=== PATIENT | female | born 1970 | race Caucasian/White ===

== ENCOUNTER 2017-10-24 10:40 | Emergency (ER) | payer MEDICAID ==
[~2017-10-24] VITALS: Ht 165.1 cm; Wt 758.0 kg
[2017-10-24 10:57] VITALS: Ht 165.1 cm; Wt 758.0 kg
[2017-10-24 12:43] VITALS: BP 158/90
== END 2017-10-24 12:43 | disposition home or self-care (01) ==
LOC: ED 10:40
DX: K04.7 Periapical abscess without sinus (principal)
CPT/HCPCS: J1885

== ENCOUNTER 2018-07-06 00:10 | Emergency (ER) | payer MEDICAID ==
[~2018-07-06] VITALS: Ht 165.1 cm; Wt 81.2 kg
[2018-07-06 00:12] VITALS: Ht 165.1 cm; Wt 81.2 kg
[2018-07-06 00:54] LABS: BASOPHIL % 0.9 % (0-2); PLATELET COUNT 237 x10^3mcL (130-400); RED CELL DISTRIBUTION WIDTH 12.9 % (11.5-14.5)
[2018-07-06 01:03] LABS: CALCIUM 7.2 mg/dL (8.5-10.1); CHLORIDE SERUM 93 mmol/L (98-107); CREATININE SERUM 0.5 mg/dL (0.6-1.0); GFR1 > 60 mL/min; GLUCOSE SERUM 392 mg/dL (74-106); POTASSIUM SERUM 3.9 mmol/L (3.5-5.1); SODIUM SERUM 127 mmol/L (136-145)
[2018-07-06 01:32] LABS: CARBON DIOXIDE 3.5 mmol/L (21-32)
[2018-07-06 01:59] LABS: microscopic required? NO
[2018-07-06 02:05] LABS: urine erythrocyte NEGATIVE (NEGATIVE)
[2018-07-06 02:30] LABS: ALBUMIN 3.4 g/dL (3.4-5.0); ALKALINE PHOSPHATASE 87 U/L (46-116); BILIRUBIN TOTAL 1.56 mg/dL (0.20-1.00); CALCIUM 6.6 mg/dL (8.5-10.1); CHLORIDE SERUM 95 mmol/L (98-107); CREATININE SERUM 0.5 mg/dL (0.6-1.0); GFR1 > 60 mL/min; GLUCOSE SERUM 318 mg/dL (74-106); POTASSIUM SERUM 3.4 mmol/L (3.5-5.1); SODIUM SERUM 130 mmol/L (136-145)
[2018-07-06 02:49] LABS: TOTAL PROTEIN, SERUM 8.6 g/dL (6.4-8.2)
[2018-07-06 03:44] LABS: AST/SGOT 117 U/L (15-37)
[2018-07-06 04:43] LABS: ALT/SGPT 16 U/L (14-59)
[2018-07-06 05:10] VITALS: BP 132/82
== END 2018-07-06 05:10 | disposition home or self-care (01) ==
LOC: ED 00:10
PROVIDERS: Emergency Medicine
DX: T78.40XA Allergy, unspecified, initial encounter (principal); E11.9 Type 2 diabetes mellitus without complications; J45.909 Unspecified asthma, uncomplicated; Z88.6 Allergy status to analgesic agent; X58.XXXA Exposure to other specified factors, initial encounter
CPT/HCPCS: 82962; J1815; J7030; J7512; Q0163

== ENCOUNTER 2018-09-10 16:47 | Emergency (ER) | payer MEDICAID ==
[~2018-09-10] VITALS: Ht 165.1 cm; Wt 82.6 kg
[2018-09-10 17:30] VITALS: BP 174/98; Ht 165.1 cm; Wt 82.6 kg
== END 2018-09-10 18:15 | disposition home or self-care (01) ==
LOC: ED 16:47
DX: K08.89 Other specified disorders of teeth and supporting structures (principal); E11.9 Type 2 diabetes mellitus without complications; J45.909 Unspecified asthma, uncomplicated; G89.29 Other chronic pain; Z90.710 Acquired absence of both cervix and uterus; Z88.5 Allergy status to narcotic agent
CPT/HCPCS: 82962

== ENCOUNTER 2019-07-24 22:27 | Observation (INO) | payer OTHER ==
[~2019-07-24] VITALS: Ht 165.1 cm; Wt 78.5 kg
[2019-07-24 22:36] VITALS: Ht 165.1 cm; Wt 78.5 kg
--- NOTE | 2019-07-24 23:53 | NUR ---
PT TO ED WITH C/O POSSIBLE YEAST INFECTION OR UTI. PT STATES SHE NOTICED DISCHARGE IN THE SHOWER AND PAIN TO VAGINAL OPENING. PT A&OX4,NO ACUTE DSITRESS NOTED, RESP EVEN AND UNLABORED, LAYING IN POSITION OF COMFORT. PELVIC EXAM COMPLETED BY WITH MYSELF TA BEDSIDE TO CASE WORK AIDE.
[2019-07-25 00:39] LABS: CHLORIDE SERUM 89 mmol/L (98-107); CREATININE SERUM 0.9 mg/dL (0.6-1.0); GFR1 > 60 mL/min; POTASSIUM SERUM 3.5 mmol/L (3.5-5.1); TOTAL PROTEIN, SERUM 7.8 g/dL (6.4-8.2)
[2019-07-25 00:48] LABS: BILIRUBIN TOTAL 0.8 mg/dL (0.20-1.00)
[2019-07-25 00:50] LABS: BASOPHIL % 0.5 % (0-2); CARBON DIOXIDE 32.3 mmol/L (21-32); PLATELET COUNT 210 x10^3mcL (130-400); RED CELL DISTRIBUTION WIDTH 13.9 % (11.5-14.5)
[2019-07-25 00:53] LABS: ALKALINE PHOSPHATASE 86 U/L (46-116); ALT/SGPT 29 U/L (14-59); AST/SGOT 51 U/L (15-37)
--- NOTE | 2019-07-25 00:53 | NUR ---
IV BOLUS INITIATED. PT VERBALIZED UNDERSTANDING OF MEDICATION PRIOR TO ADMINISTRATION.
[2019-07-25 00:56] LABS: GLUCOSE SERUM 568 mg/dL (74-106); SODIUM SERUM 123 mmol/L (136-145)
[2019-07-25 00:57] LABS: CALCIUM 5.2 mg/dL (8.5-10.1)
[2019-07-25] MEDS ORDERED: CREON1 EC2 PO (02:03)
[2019-07-25] MEDS ORDERED: ADMELOG SO100 UNIT/1 SQ (02:04)
[2019-07-25] MEDS ORDERED: BASAGLAR K100 UNIT/1 SQ (02:05)
--- NOTE | 2019-07-25 03:20 | NUR ---
GAVE REPORT TO NABIL HUSTON. UPDATES PROVIDED, QUESTIONS ANSWERED.
--- NOTE | 2019-07-25 03:21 | NUR ---
PER DR. RADHA VALDEZ TO SEND PATIENT TO TELE
--- NOTE | 2019-07-25 03:30 | NUR ---
ADMITTED PT FROM ER WITH CC OF LOWER BACK PAIN WITH VAGINAL DISCHARGE TO JAS JAIMES PER PT.FREQUENT AND BURNING SENSATION ON URINATION ALSO REPORTED.AMBULATED TO HER BED.DENIES ANY PAIN AT THIS TIME.BP 138/83 MMHG,HR 72.ADMISSION CARE RENDERED.PLACED ON TELE MONIOT # 12 WITH READING NSR.WILL CONTINUE TO MONITOR.
[2019-07-25 03:52] VITALS: BP 138/83
[2019-07-25 05:14] VITALS: BP 124/71
--- NOTE | 2019-07-25 07:30 | NUR ---
RECEIVED PATIENT RESTING IN BED, NO ACUTE DISTRESS NOTED. PATIENT DENIES PAIN. TELE MONITOR IN PLACE. PATIENT C/O BURNING UPON URINATION, AND URIANRY FREQUENCY. PATIENT AMBULATORY WITH NO ASSIST. NS IV INFUSING TO RFA AT 50ML/HR, IV SITE CDI &PATENT. CALL LIGHT WITHIN REACH, BED IN LOW POSITION, WILL CONTINUE TO MONITOR.
[2019-07-25 08:57] VITALS: BP 131/76
--- NOTE | 2019-07-25 09:20 | NUR ---
DR. CORDERO GAVE VERBAL ORDER/ READBACK FOR DIFLUCAN 150MG PO ONCE & AN ORDER FOR UA, WILL CARRY OUT ORDERS AT THIS TIME.
[2019-07-25 09:33] LABS: CREATININE SERUM 0.6 mg/dL (0.6-1.0); GFR1 > 60 mL/min
[2019-07-25 10:20] LABS: CALCIUM 9.1 mg/dL (8.5-10.1); CARBON DIOXIDE 25.3 mmol/L (21-32); CHLORIDE SERUM 103 mmol/L (98-107); GLUCOSE SERUM 365 mg/dL (74-106); POTASSIUM SERUM 4.2 mmol/L (3.5-5.1); SODIUM SERUM 138 mmol/L (136-145)
[2019-07-25 10:32] LABS: microscopic required? NO
[2019-07-25 10:48] LABS: UA SPECIFIC GRAVITY 1.015 (1.005-1.035); urine erythrocyte NEGATIVE (NEGATIVE)
--- NOTE | 2019-07-25 11:22 | NUR ---
DR. CORDERO AWARE PATIENT NA IMPROVED TO 138, AND AWARE OF UA RESULTS. DR CORDERO AWARE PATIENT WAS C/O FREQUENT BURNING UPON URINATION, DR. CORDERO GAVE TELEPHONE ORDER READBACK FOR PYRIDIUM 200MG PO ONCE, WILL CARRY OUT ORDERS AT THIS TIME.
[2019-07-25 13:12] VITALS: BP 136/75
[2019-07-25] MEDS ORDERED: DIA5 PO (13:17)
--- NOTE | 2019-07-25 14:00 | NUR ---
DR. CORDERO AWARE PATIENTS PELVIC EXAM WAS NEGATIVE, DR. CORDERO GAVE TORB TO CANCEL US ABDOMINAL COMPLETE PATIENT REFUSES AT THIS TIME. DR. CORDERO STATED OKAY FOR PATIENT TO BE D/C AND TO FOLLOW UP WITH SUPERVISOR LANDSCAPE OUTPT. WILL CARRY OUT ORDERS.
[2019-07-25 15:43] VITALS: BP 136/75
--- NOTE | 2019-07-25 17:15 | NUR ---
PATIENT RECEIVED COPY OF DISCHARGE INSTRUCTIONS, PATIENT UNDERSTANDS & AGREES WITH DISCHARGE INSTRUCTIONS & PLAN OF CARE, INCLUDING MEDICATIONS & FOLLOW UP WITH PCP. PATIENT BLOOD GLUCOSE WAS 164 PRIOR TO D/C, BLOOD SUGAR WAS COVERED AND SNACK WERE PROVIDED. ALL QUESTIONS AND CONCERNS ADDRESSED. IV TO RFA REMOVED, CATH INTACT. ARMBANDS & TELE MONITOR REMOVED, TELE MONITOR RETURNED TO UNDER SHERIFF. PATIENT TAKEN DOWN BY NEWS COPY EDITOR.
== END 2019-07-25 17:15 | disposition home or self-care (01) | DRG 420 ==
LOC: ED 22:27 → DU 07-25 03:05 → EDBEDREQ 07-25 03:11 → DU 07-25 03:30
PROVIDERS: Emergency Medicine; ADMIT Internal Medicine
DX: E11.65 Type 2 diabetes mellitus with hyperglycemia (principal); E83.51 Hypocalcemia; E87.1 Hypo-osmolality and hyponatremia; B37.9 Candidiasis, unspecified; I25.10 Atherosclerotic heart disease of native coronary artery without angina pectoris; I25.2 Old myocardial infarction; J45.909 Unspecified asthma, uncomplicated; Z79.4 Long term (current) use of insulin
CPT/HCPCS: 82962; G0378; J1644; J1815; J1817; J7030